=== PATIENT | female | born 1970 | race American Indian/Alaskan Native ===

== ENCOUNTER 2018-06-29 08:59 | Emergency (ER) | payer MEDICAID ==
[~2018-06-29] VITALS: Ht 152.4 cm; Wt 45.0 kg
[~2018-06-29 08:59] MED LIST: ANTI10DR6 EACH EAR; CLIN300C85 PO; LIDO700A5 TOP; MELO-100 PO
[2018-06-29 09:04] VITALS: BP 120/75
== END 2018-06-29 10:20 | disposition home or self-care (01) ==
LOC: ER 09:00
DX: S39.011A Strain of muscle, fascia and tendon of abdomen, initial encounter (principal); S30.0XXA Contusion of lower back and pelvis, initial encounter; J45.909 Unspecified asthma, uncomplicated; Z88.0 Allergy status to penicillin; Z79.2 Long term (current) use of antibiotics; Z79.899 Other long term (current) drug therapy; V19.9XXA Pedal cyclist (driver) (passenger) injured in unspecified traffic accident, initial encounter; Y93.89 Activity, other specified; Y92.89 Other specified places as the place of occurrence of the external cause; Y99.8 Other external cause status
CPT/HCPCS: 99284

== ENCOUNTER 2018-07-17 13:57 | Emergency (ER) | payer MEDICAID ==
[~2018-07-17] VITALS: Ht 152.4 cm; Wt 54.5 kg
[2018-07-17 14:05] VITALS: BP 112/76
[2018-07-17] MEDS ORDERED: CLIN150C2 PO (14:10)
[2018-07-17] MEDS ORDERED: NYST1000 PO (14:10)
== END 2018-07-17 14:17 | disposition home or self-care (01) ==
LOC: ER 13:58
DX: K08.89 Other specified disorders of teeth and supporting structures (principal); B37.0 Candidal stomatitis; K13.29 Other disturbances of oral epithelium, including tongue; J45.909 Unspecified asthma, uncomplicated; Z88.0 Allergy status to penicillin; Z79.899 Other long term (current) drug therapy
CPT/HCPCS: 99283

== ENCOUNTER 2021-01-31 10:43 | Emergency (ER) | payer MEDICAID ==
[~2021-01-31] VITALS: Ht 152.4 cm; Wt 54.6 kg
[~2021-01-31 10:43] MED LIST changes: +CLIN-97 PO; -CLIN300C85 PO
[2021-01-31 10:50] VITALS: BP 108/70
== END 2021-01-31 13:07 | disposition left against medical advice (07) ==
LOC: ER 10:43
DX: F41.9 Anxiety disorder, unspecified (principal); Z76.0 Encounter for issue of repeat prescription; Z53.21 Procedure and treatment not carried out due to patient leaving prior to being seen by health care provider

== ENCOUNTER 2023-04-20 13:13 | Emergency (ER) | payer MEDICAID ==
[~2023-04-20] VITALS: Ht 152.4 cm; Wt 55.2 kg
[2023-04-20 13:33] VITALS: BP 98/69
[2023-04-20] MEDS ORDERED: PRED20TA PO (14:42)
== END 2023-04-20 14:53 | disposition home or self-care (01) ==
LOC: ER 13:14
DX: L23.7 Allergic contact dermatitis due to plants, except food (principal); Z88.0 Allergy status to penicillin; Z79.2 Long term (current) use of antibiotics; Z79.899 Other long term (current) drug therapy
CPT/HCPCS: 99283

== ENCOUNTER 2023-08-21 16:47 | Emergency (ER) | payer MEDICAID ==
[~2023-08-21] VITALS: Ht 152.4 cm; Wt 54.5 kg
[2023-08-21 16:52] VITALS: BP 132/77; PULSE 110; TEMP 98.8; O2SAT 97
[2023-08-21 17:27] LABS: BASOPHILS # (AUTO) 0.1 X10'3 (0-0.2); BASOPHILS % (AUTO) 0.5 % (0-1); EOSINOPHILS % (AUTO) 0.1 % (0-6); HEMATOCRIT 42.1 % (35.0-45.0); HEMOGLOBIN 14.3 g/dl (12.0-16.0); LYMPHOCYTES # (AUTO) 2.6 X10'3 (1.1-4.8); LYMPHOCYTES % (AUTO) 23.3 % (21-51); MEAN CORPUSCULAR VOLUME 79.6 FL (78-98); MEAN PLATELET VOLUME 7.8 FL (7.4-10.4); MONOCYTES # (AUTO) 1.1 X10'3 (0-0.9); MONOCYTES % (AUTO) 9.4 % (2-12); NEUTROPHILS # (AUTO) 7.5 X10'3 (1.8-7.7); NEUTROPHILS % (AUTO) 66.7 % (42-75); PLATELET COUNT 444 X10'3 (140-440); RED BLOOD COUNT 5.28 X10'6 (4.20-5.60); RED CELL DISTRIBUTION WIDTH 14.6 % (11.5-14.5); WHITE BLOOD COUNT 11.3 X10'3 (4.5-11.0)
[2023-08-21 17:45] LABS: ALANINE AMINOTRANSFERASE 12 U/L (12-78); ALBUMIN 3.1 G/DL (3.4-5.0); ALBUMIN/GLOBULIN RATIO 0.7 (1.1-1.5); ALKALINE PHOSPHATASE 108 IU/L (46-116); ANION GAP 8 (8-16); ASPARTATE AMINO TRANSFERASE 14 U/L (10-37); BILIRUBIN,TOTAL 0.2 MG/DL (0.1-1.0); BLOOD UREA NITROGEN 7 MG/DL (7-18); CHLORIDE 93 MMOL/L (99-107); GLUCOSE 131 MG/DL (70-104); LIPASE 22 U/L (16-77); POTASSIUM 3.9 MMOL/L (3.5-5.1); SODIUM 130 MMOL/L (135-145); TOTAL CARBON DIOXIDE 28.8 MMOL/L (24-32); TOTAL PROTEIN 7.3 G/DL (6.4-8.2); eCRCL 68 ML/MIN; eGFR 88 ML/MIN
[2023-08-21 17:51] LABS: CALCIUM 9.2 MG/DL (8.5-10.1)
[2023-08-21] MEDS ORDERED: normal saline 1000ML IV soln IVB ONE (18:35)
[2023-08-21] MEDS ORDERED: LIDOcaine Viscous 15ml cup MM ONE (18:35)
[2023-08-21] MEDS ORDERED: mag hydrox/Alum hydrox/simeth 30ml oral suspension PO ONE (18:35)
[2023-08-21 18:45] LABS: BILIRUBIN,URINE NEGATIVE (Neg); CLARITY,URINE SLIGHTLY CLOUDY (Clear); COLOR,URINE YELLOW (Yellow); GLUCOSE, URINE NEGATIVE (Neg); KETONES,URINE NEGATIVE (Neg); LEUKOCYTE ESTERASE ,URINE NEGATIVE (Neg); NITRITES, URINE NEGATIVE (Neg); OCCULT BLOOD,URINE TRACE-INTACT (Neg); PH,URINE 6.5 (4.8-8.0); PROTEIN,URINE NEGATIVE (Neg); UROBILINOGEN,URINE 0.2 E.U/dL (0.2-1.0)
[2023-08-21] MEDS ORDERED: ketorolac tromethamine 15mg/ml inj. IV ONE (18:45)
[2023-08-21 18:52] LABS: UA COLLECTION TYPE CLN CATCH MIDSTREAM
[2023-08-21 18:55] LABS: AMORPHOUS URATES 2+; BACTERIA,URINE FEW /HPF (Neg); MUCUS STRANDS MANY /LPF (Neg); SQUAMOUS EPITHELIAL CELL,UR MODERATE /LPF (FEW); WBC,URINE 0-4 /HPF (0-4)
[2023-08-21 18:57] LABS: YEAST FEW /HPF (NEGATIVE)
[2023-08-21] MEDS ORDERED: iohexol 350MG/ML 100ml bottle IV ONE (19:01)
[2023-08-21 19:09] LABS: URINE AMPHETAMINE SCREEN POSITIVE (Neg); URINE BARBITUATE SCREEN NEGATIVE (Neg); URINE BENZODIAZEPINES SCREEN NEGATIVE (Neg); URINE CANNABINOID SCREEN POSITIVE (Neg); URINE COCAINE SCREEN NEGATIVE (Neg); URINE METHADONE SCREEN NEGATIVE (Neg); URINE OPIATE SCREEN NEGATIVE (Neg); URINE PHENCYCLIDINE SCREEN NEGATIVE (Neg)
[2023-08-21 19:26] VITALS: RESP 20
[2023-08-21] MEDS ORDERED: FAMO-128 PO (20:36)
[2023-08-21] MEDS ORDERED: DOCU-148 PO (20:36)
== END 2023-08-21 20:44 | disposition home or self-care (01) ==
LOC: ER 16:48
DX: K29.00 Acute gastritis without bleeding (principal); K59.00 Constipation, unspecified; J45.909 Unspecified asthma, uncomplicated; Z88.0 Allergy status to penicillin; Z79.899 Other long term (current) drug therapy
CPT/HCPCS: 36415; 74177; 80053; 80305; 81001; 83690; 84484; 85025; 93005; 96361; 96374; 99285; J1885; J3490; J7030; Q9967